=== PATIENT | female | born 1995 | race Two or more races ===

== ENCOUNTER 2020-04-07 17:48 | Emergency (ER) | payer SELFPAY ==
[~2020-04-07] VITALS: Ht 154.9 cm; Wt 74.8 kg
[2020-04-07 18:02] VITALS: BP 133/67
--- NOTE | 2020-04-07 18:02 | NUR ---
ED Nurse Note: Patient walked in to ED from home c/o right wrist pain S/P fall today. Per pt, she landed on her right wrist. Pt able to move her hand and fingers. AAOx4, verbally responsive. No SOB, on room air. ERPA at bedside.
--- NOTE | 2020-04-07 18:21 | NUR ---
ED Nurse Note: Xray at bedside.
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
[2020-04-07] MEDS ORDERED: IBUPROFEN600 M1 ORAL (18:43)
[2020-04-07] MEDS ORDERED: NORCO 5-325 TA1 EAC1 ORAL (18:43)
[2020-04-07 18:48] VITALS: BP 133/67
--- NOTE | 2020-04-07 18:48 | NUR ---
ED Nurse Note: Pt cleared by ERPA for discharge. DC instructions/prescription was given and explained to pt and verbalized understanding of teachings. All medical deviecs such as ID band removed. Pt is AAO x4, ambulatory and left with all personal belongings.
--- NOTE | 2020-04-08 15:56 | Diagnostic Imaging Report ---
Clinical Indication:Pain, status post fall Technique: 3 views of the right wrist Comparison: None Findings: No acute fracture. No dislocation. Joint spaces are preserved. Impression: Negative
== END 2020-04-07 18:48 | disposition home or self-care (01) ==
LOC: EMR 18:41
DX: S63.501A Unspecified sprain of right wrist, initial encounter (principal); W05.2XXA Fall from non-moving motorized mobility scooter, initial encounter; Y92.9 Unspecified place or not applicable
CPT/HCPCS: 29125; 99283